=== PATIENT | female | born 1970 | race Caucasian/White ===

== ENCOUNTER 2016-11-21 16:17 | Emergency (ER) | payer SELFPAY ==
[~2016-11-21] VITALS: Ht 160 cm; Wt 93.0 kg
[~2016-11-21 16:17] MED LIST: DICL75 PO; PRIN10TA PO
[2016-11-21 16:20] VITALS: BP 184/95; PULSE 68; RESP 20; TEMP 97.8; O2SAT 95
--- NOTE | 2016-11-21 16:26 | PD ---
Physical Exam Date Seen by Provider: November 21, 2016 Time Seen by Provider: 16:23 Narrative Pt is a 46 year old female presenting to the ED for evaluation of tunnel vision which started yesterday, hx of the same. Left sided facial and arm numbness. No weakness in extremities. She states she has a right sided headache, this headache is different from previous headaches she has had. Vomiting and photophobia. VSS, alert. Awaiting bed placement. Data Data Last Documented VS Vital Signs Date Time Temp Pulse Resp B/P Pulse Ox O2 Delivery O2 Flow Rate FiO2 11/21/16 16:20 97.8 68 20 184/95 95 Room Air [facility] Supervised Visit with RUSS: Ellen Fuentes November 21, 2016 16:26
--- NOTE | 2016-11-21 18:26 | PD ---
HPI Chief Complaint: Numbness/Tingling Time Seen by Provider: 18:26 Travel History International Travel<30 days: No Contact w/Intl Traveler<30days: No Traveled to known affect area: No History of Present Illness HPI 46-year-old female presents to the ED for evaluation of two-year history of right-sided headache. Patient states that the headaches always begin the same way-- with "kaleidoscope" vision followed by numbness of the left sided upper and lower extremities. She states that shortly after she has sharp 10/10 pain in the right side of the head. She states that the headaches are accompanied by nausea. No exacerbating or alleviating factors reported. She states that she usually goes to sleep to relieve the headache. She states that when she wakes the pain is diminished but not completely resolved. She endorses two of these headaches in the last 24 hours, endorses 9 out of 10 headache on presentation. PFSH Past Medical History Cardiovascular Problems: Yes Diminished Hearing: No Gastrointestinal Disorders: Yes (GASTRITIS) Genitourinary: Yes Hiatal Hernia: Yes Hypertension: Yes (UNTREATED) Kidney Stones: Yes Musculoskeletal: Yes (BILATERAL SCIATICIA) Neurologic: Yes Immunizations Current: Yes Migraines: Yes ?: Unknown Menopausal: No : 1 Para: 1 Past Surgical History Genitourinary Surgery: Yes (STENT IN URETER KIDNEY,KIDNEY STONES REMOVED) Gynecologic Surgery: Yes (OVARIAN CYST) Other Surgery: Yes ( ) Social History Alcohol Use: No (quit x 2 years) Tobacco Use: No (quit x 2 years) Substance Use: Yes (marijuana occasionally) Allergies-Medications (Allergen,Severity, Reaction): Coded Allergies: No Known Allergies (Verified , 11/21/16) Reported Meds & Prescriptions Reported Meds & Active Scripts Active Ultram (Tramadol HCl) 50 Mg Tab 50 Mg PO Q8H PRN Fioricet (Wiklmhdgdo-Obttxhmtyqtbz-Vpuctqye) 50-300-40 Mg Cap 1 Cap PO Q4H PRN Reported Ibuprofen 800 Mg Tab 800 Mg PO ONCE Review of Systems Except as stated in HPI: all other systems reviewed are Neg General / Constitutional: No: Fever, Chills Eyes: Positive: Blurred Vision HENT: Positive: Headaches Cardiovascular: No: Chest Pain or Discomfort, Palpitations, Diaphoresis, Syncope, Edema Respiratory: No: Cough, Shortness of Breath Gastrointestinal: Positive: Nausea, No: Vomiting, Abdominal Pain Genitourinary: No: Urgency, Frequency, Dysuria Musculoskeletal: No: Myalgias, Arthralgias, Weakness Neurologic: Positive: Headache, No: Weakness, Syncope, Focal Abnormalities, Slurred Speech Physical Exam Narrative GENERAL: Well-nourished, well-developed nontoxic appearing white female in no acute distress. SKIN: Focused skin assessment warm/dry. HEAD: Normocephalic. Atraumatic. EYES: No scleral icterus. No injection or drainage. PERRLA. EOMI. NECK: Supple, trachea midline. No JVD or lymphadenopathy. CARDIOVASCULAR: Regular rate and rhythm without murmurs, gallops, or rubs. Plus DP and radial pulses bilaterally. RESPIRATORY: Breath sounds clear and equal bilaterally. No accessory muscle use. GASTROINTESTINAL: Abdomen soft, non-tender, nondistended. Active bowel sounds. MUSCULOSKELETAL: No cyanosis, or edema. Patient ambulates with a normal gait. She moves extremities spontaneously. NEUROLOGICAL: Awake and alert. Cranial nerves II through XII intact. Motor and sensory grossly within normal limits. Five out of 5 muscle strength in all muscle groups. Normal speech. No pronator drift. No difficulties with finger to nose testing. BACK: Nontender without obvious deformity. No CVA tenderness. Data Data Last Documented VS Vital Signs Date Time Temp Pulse Resp B/P Pulse Ox O2 Delivery O2 Flow Rate FiO2 11/21/16 21:03 71 16 125/64 96 Room Air 11/21/16 16:20 97.8 Orders Complete Blood Count With Diff (11/21/16 18:37) Comprehensive Metabolic Panel (11/21/16 18:37) Ct Brain W/O Iv Contrast(Rout) (11/21/16 18:37) Ecg Monitoring (11/21/16 18:37) Iv Access Insert/Monitor (11/21/16 18:37) Oximetry (11/21/16 18:37) Sodium Chloride 0.9% Flush (Ns Flush) (11/21/16 18:45) Ketorolac Inj (Toradol Inj) (11/21/16 18:45) Prochlorperazine Inj (Compazine Inj) (11/21/16 18:45) Diphenhydramine Inj (Benadryl Inj) (11/21/16 18:45) Sodium Chlor 0.9% 1000 Ml Inj (Ns 1000 M (11/21/16 18:37) Urinalysis - C+S If Indicated (11/21/16 18:37) Ed Urine Pregnancytest Poc (11/21/16 18:37) Mandatory Outpatient Referral (11/21/16 21:46) Labs Laboratory Tests Test 11/21/16 11/21/16 18:20 20:30 White Blood Count 18.5 TH/MM3 Red Blood Count 4.97 MIL/MM3 Hemoglobin 14.9 GM/DL Hematocrit 44.1 % Mean Corpuscular Volume 88.7 FL Mean Corpuscular Hemoglobin 30.0 PG Mean Corpuscular Hemoglobin 33.8 % Concent Red Cell Distribution Width 13.1 % Platelet Count 420 TH/MM3 Mean Platelet Volume 8.6 FL Neutrophils (%) (Auto) 82.7 % Lymphocytes (%) (Auto) 14.2 % Monocytes (%) (Auto) 2.4 % Eosinophils (%) (Auto) 0.2 % Basophils (%) (Auto) 0.5 % Neutrophils # (Auto) 15.3 TH/MM3 Lymphocytes # (Auto) 2.6 TH/MM3 Monocytes # (Auto) 0.4 TH/MM3 Eosinophils # (Auto) 0.0 TH/MM3 Basophils # (Auto) 0.1 TH/MM3 CBC Comment DIFF FINAL Differential Comment Sodium Level 139 MEQ/L Potassium Level 3.9 MEQ/L Chloride Level 102 MEQ/L Carbon Dioxide Level 24.7 MEQ/L Anion Gap 12 MEQ/L Blood Urea Nitrogen 10 MG/DL Creatinine 0.83 MG/DL Estimat Glomerular Filtration 75 ML/MIN Rate Random Glucose 112 MG/DL Calcium Level 9.3 MG/DL Total Bilirubin 0.9 MG/DL Aspartate Amino Transf 19 U/L (AST/SGOT) Alanine Aminotransferase 28 U/L (ALT/SGPT) Alkaline Phosphatase 93 U/L Total Protein 8.5 GM/DL Albumin 4.2 GM/DL Urine Color YELLOW Urine Turbidity CLEAR Urine pH 7.0 Urine Specific [place] 1.011 Urine Protein NEG mg/dL Urine Glucose (UA) NEG mg/dL Urine Ketones NEG mg/dL Urine Occult Blood NEG Urine Nitrite NEG Urine Bilirubin NEG Urine Urobilinogen LESS THAN 2.0 MG/DL Urine Leukocyte Esterase NEG Urine RBC LESS THAN 1 /hpf Urine WBC 1 /hpf Urine Squamous Epithelial 2 /hpf Cells Urine Bacteria RARE /hpf Microscopic Urinalysis Comment CULT NOT INDICATED MDM Medical Decision Making Medical Screen Exam Complete: Yes Emergency Medical Condition: Yes Differential Diagnosis Cephalgia versus migraine headache versus brain mass versus less likely ICH versus less likely embolic stroke versus other Narrative Course 46-year-old female presents to the ED for evaluation of two-year history of right-sided headache. Patient states that the headaches always begin the same way-- with "kaleidoscope" vision followed by numbness of the left sided upper and lower extremities. She states that shortly after she has sharp 10/10 pain in the right side of the head. She states that the headaches are accompanied by nausea. No exacerbating or alleviating factors reported. She states that she usually goes to sleep to relieve the headache. She states that when she wakes the pain is diminished but not completely resolved. She endorses two of these headaches in the last 24 hours, endorses 9 out of 10 headache on presentation. Vitals reviewed. Physical exam reveals a nontoxic-appearing white female in no acute distress. No focal neuro deficits. IV was established. Patient was placed on continuous monitoring. She was administered IV Benadryl, Compazine, Toradol, 1 L normal saline. CBC: Leukocytosis of 18.5 CMP: Unremarkable UA: no culture indicated CT of the head: Normal per radiology read On recheck the patient reports improvement of her symptoms. I suspect this is complex migraine. Suspect the elevated white count is stress reaction secondary to 2 headaches within 24 hours. I feel the patient is safe for discharge with abortive medications and outpatient follow-up. I discussed this plan with Dr. Pryor who is agreeable. I discussed the results of the workup with the patient. Patient was provided prescriptions for Fioricet and Ultram. Mandatory outpatient consult was placed with neurology. She is instructed to take the medications as prescribed, follow up as discussed. She indicated understanding of instructions and is agreeable to the care plan. The patient is stable and discharged home. Diagnosis Primary Impression: Headache Qualified Code: G44.89 - Other headache syndrome Referrals: Andres Campos PhD MD Patient Instructions: General Instructions, Migraine Headache (ED) Additional Instructions: Rest, hydrate. Avoid known stressors. Takes Fioricet at onset of headache. This may be coadministered with Ultram. A mandatory outpatient follow-up has been wasting your behalf. Either the hospital or neurologist office will contact you regarding follow up. Follow up with Dr. Campos as discussed. Return to the ED for any urgent or emergent medical condition. Med/Other Pt SpecificInfo: Prescription(s) given Scripts Tramadol (Ultram)50 Mg Tab50 Mg PO Q8H PRN (PAIN) #10 TAB Ref 0 Prov:Andrea Pryor MD 11/21/16 Edeushpbyc-Zyxikwstfplfs-Llccjjwb (Fioricet)50-300-40 Mg Cap1 Cap PO Q4H PRN ( HEADACHE) #20 CAP Ref 0 Prov:Andrea Pryor MD 11/21/16 Disposition: 01 DISCHARGE HOME Condition: Stable Lisa Barriga November 21, 2016 18:26
[2016-11-21] MEDS ORDERED: SODIUM CHLOR 0.9% 1000 ML INJ 1,000 ML IV ONE (18:37)
[2016-11-21] MEDS ORDERED: SODIUM CHLORIDE 0.9% FLUSH 10 ML FLUSH IVF PRN (18:45)
[2016-11-21] MEDS ORDERED: PROCHLORPERAZINE INJ 10 MG/2 ML VIAL IVP ONE (18:45)
[2016-11-21] MEDS ORDERED: KETOROLAC TROMETHAMINE 30 MG/ML (IVP) VIAL IVP ONE (18:45)
[2016-11-21] MEDS ORDERED: diphenhydrAMINE HCL 50 MG/ML VIAL IVP ONE (18:45)
[2016-11-21 18:59] LABS: AUTOMATED NEUTROPHIL # 15.3 TH/MM3 (1.8-7.7); BASOPHIL # 0.1 TH/MM3 (0-0.2); BASOPHIL % 0.5 % (0.0-2.0); EOSINOPHIL % 0.2 % (0.0-4.0); HEMATOCRIT 44.1 % (35.0-46.0); HEMO FLAGS DIFF FINAL; LYMPH % 14.2 % (9.0-44.0); LYMPHOCYTE # 2.6 TH/MM3 (1.0-4.8); MEAN CELL VOLUME 88.7 FL (80.0-100.0); MEAN CORPUSCULAR HGB CONC 33.8 % (32.0-36.0); MONO % 2.4 % (0.0-8.0); NEUT % 82.7 % (16.0-70.0); PLATELET COUNT 420 TH/MM3 (150-450); RED BLOOD COUNT 4.97 MIL/MM3 (4.00-5.30); RED CELL DISTRIBUTION WIDTH 13.1 % (11.6-17.2); WHITE BLOOD COUNT 18.5 TH/MM3 (4.0-11.0)
[2016-11-21 19:00] VITALS: BP 147/71; PULSE 71; PULSE 74; RESP 17; RESP 18; O2SAT 97
[2016-11-21] MEDS ORDERED: IBUP800T23 PO (19:01)
[2016-11-21 19:12] VITALS: O2SAT 99
[2016-11-21 19:16] LABS: ANION GAP 12 MEQ/L (5-15); AST (GOT) 19 U/L (15-37); BICARBONATE 24.7 MEQ/L (21.0-32.0); BLOOD UREA NITROGEN 10 MG/DL (7-18); CHLORIDE 102 MEQ/L (98-107); GLOMERULAR FILTRATION RATE 75 ML/MIN (>89); POTASSIUM 3.9 MEQ/L (3.5-5.1); SODIUM (NA) 139 MEQ/L (136-145)
[2016-11-21 19:19] LABS: ALKALINE PHOSPHATASE 93 U/L (45-117); ALT (GPT) 28 U/L (10-53); TOTAL BILIRUBIN ADULT 0.9 MG/DL (0.2-1.0)
--- NOTE | 2016-11-21 19:42 | RADRPT ---
EXAM DATE/TIME: 11/21/2016 19:19 [place] COMPARISON: No previous studies available for comparison. INDICATIONS : Left sided numbness and right sided cephalgia with nausea and vomiting. Hard to see. RADIATION DOSE: 43.69 CTDIvol (mGy) MEDICAL HISTORY : Hypertension. Cardiovascular disease SURGICAL HISTORY : None. ENCOUNTER: Initial ACUITY: 1 day PAIN SCALE: 8/10 LOCATION: cranial TECHNIQUE: Multiple contiguous axial images were obtained of the head. Using automated exposure control and adj ustment of the mA and/or kV according to patient size, radiation dose was kept as low as reasonably a chievable to obtain optimal diagnostic quality images. FINDINGS: CEREBRUM: The ventricles are normal for age. No evidence of midline shift, mass lesion, hemorrhage or acute in farction. No extra-axial fluid collections are seen. POSTERIOR FOSSA: The cerebellum and brainstem are intact. The 4th ventricle is midline. The cerebellopontine angle i s unremarkable. EXTRACRANIAL: The visualized portion of the orbits is intact. SKULL: The calvaria is intact. No evidence of skull fracture. CONCLUSION: Normal examination. Khari Suarez MD on November 21, 2016 at 19:39 Board Certified Radiologist. This report was verified electronically.
[2016-11-21 21:03] VITALS: BP 125/64; PULSE 71; RESP 16; O2SAT 96
[2016-11-21 21:06] LABS: BACTERIA, URINE RARE /hpf; BLOOD, URINE NEG (NEG); COMMENT (UR) CULT NOT INDICATED; CULTURE IF INDICATED CULT NOT INDICATED; GLUCOSE,URINE NEG (NEG); KETONE, URINE NEG (NEG); NITRITE,URINE NEG (NEG); SQUAMOUS EPITHELIAL CELL URINE 2 /hpf (0-5); URINE COLOR YELLOW (YELLW/STRAW)
[2016-11-21] MEDS ORDERED: ULTR50TA5 PO (21:44)
[2016-11-21] MEDS ORDERED: BUTA1CAP PO (21:44)
== END 2016-11-21 21:50 | disposition home or self-care (01) ==
LOC: NEPC 16:17
DX: R51 Headache (principal); I10 Essential (primary) hypertension; F12.90 Cannabis use, unspecified, uncomplicated
CPT/HCPCS: 70450; 80053; 81001; 84703; 85025; 96361; 96374; 96375; 99284; J0780; J1200; J1885; J7030

== ENCOUNTER 2017-03-26 10:51 | Emergency (ER) | payer SELFPAY ==
[~2017-03-26] VITALS: Ht 160 cm; Wt 90.0 kg
[~2017-03-26 10:51] MED LIST changes: +BUTA1CAP PO; -DICL75 PO; +IBUP800T23 PO; -PRIN10TA PO; +ULTR50TA5 PO
[2017-03-26 10:53] VITALS: BP 187/100; PULSE 105; RESP 20; TEMP 98.4; O2SAT 96
[2017-03-26 11:01] VITALS: BP 173/98; PULSE 86; RESP 16
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
== END 2017-03-26 11:29 | disposition left against medical advice (07) ==
LOC: NETRI 10:51
DX: M25.531 Pain in right wrist (principal)
CPT/HCPCS: 99281

== ENCOUNTER 2017-04-25 09:44 | Emergency (ER) | payer SELFPAY ==
[~2017-04-25] VITALS: Ht 160 cm; Wt 100.0 kg
[2017-04-25 09:50] VITALS: BP 201/108; PULSE 92; RESP 16; TEMP 98.2; O2SAT 99
[2017-04-25 11:21] LABS: AUTOMATED NEUTROPHIL # 2.1 TH/MM3 (1.8-7.7); EOSINOPHIL # 0.2 TH/MM3 (0-0.4); EOSINOPHIL % 3.3 % (0.0-4.0); HEMATOCRIT 39.6 % (35.0-46.0); HEMO FLAGS DIFF FINAL; LYMPH % 45.2 % (9.0-44.0); LYMPHOCYTE # 2.1 TH/MM3 (1.0-4.8); MEAN CELL VOLUME 98.7 FL (80.0-100.0); MEAN CORPUSCULAR HEMOGLOBIN 33.5 PG (27.0-34.0); MEAN CORPUSCULAR HGB CONC 33.9 % (32.0-36.0); NEUT % 44.5 % (16.0-70.0); PLATELET COUNT 222 TH/MM3 (150-450); RED BLOOD COUNT 4.01 MIL/MM3 (4.00-5.30); RED CELL DISTRIBUTION WIDTH 15.2 % (11.6-17.2); WHITE BLOOD COUNT 4.7 TH/MM3 (4.0-11.0)
[2017-04-25 11:41] LABS: ALT (GPT) 137 U/L (10-53); ANION GAP 7 MEQ/L (5-15); AST (GOT) 197 U/L (15-37); BICARBONATE 28.5 MEQ/L (21.0-32.0); BLOOD UREA NITROGEN 8 MG/DL (7-18); CHLORIDE 107 MEQ/L (98-107); GLOMERULAR FILTRATION RATE 104 ML/MIN (>89); POTASSIUM 3.4 MEQ/L (3.5-5.1); SODIUM (NA) 142 MEQ/L (136-145)
[2017-04-25 11:43] LABS: ALKALINE PHOSPHATASE 109 U/L (45-117); TOTAL BILIRUBIN ADULT 0.5 MG/DL (0.2-1.0)
[2017-04-25 11:44] LABS: ALCOHOL 258 MG/DL (0-5)
[2017-04-25 13:13] VITALS: BP 145/86; PULSE 76; RESP 19; TEMP 98; O2SAT 95
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
[2017-04-25 14:00] VITALS: BP 180/100; PULSE 69; RESP 18; TEMP 98.7; O2SAT 96
--- NOTE | 2017-04-25 17:41 | PD ---
Physical Exam Time Seen by Provider: 17:37 SAGE Wu has evaluated the patient and cleared the patient for discharge. Data Data Last Documented VS Vital Signs Date Time Temp Pulse Resp B/P (MAP) Pulse Ox O2 Delivery O2 Flow Rate FiO2 04/25/17 14:00 98.7 69 18 180/100 (126) 96 Room Air Orders Orders Complete Blood Count With Diff (04/25/17 10:18) Comprehensive Metabolic Panel (04/25/17 10:18) Psych Screen (04/25/17 10:18) Drug Screen, Random Urine (04/25/17 10:18) Alcohol (Ethanol) (04/25/17 10:18) Diet Regular Basic (04/25/17 Dinner) Labs Laboratory Tests Test 04/25/17 10:37 White Blood Count 4.7 TH/MM3 Red Blood Count 4.01 MIL/MM3 Hemoglobin 13.4 GM/DL Hematocrit 39.6 % Mean Corpuscular Volume 98.7 FL Mean Corpuscular Hemoglobin 33.5 PG Mean Corpuscular Hemoglobin Concent 33.9 % Red Cell Distribution Width 15.2 % Platelet Count 222 TH/MM3 Mean Platelet Volume 8.1 FL Neutrophils (%) (Auto) 44.5 % Lymphocytes (%) (Auto) 45.2 % Monocytes (%) (Auto) 6.0 % Eosinophils (%) (Auto) 3.3 % Basophils (%) (Auto) 1.0 % Neutrophils # (Auto) 2.1 TH/MM3 Lymphocytes # (Auto) 2.1 TH/MM3 Monocytes # (Auto) 0.3 TH/MM3 Eosinophils # (Auto) 0.2 TH/MM3 Basophils # (Auto) 0.0 TH/MM3 CBC Comment DIFF FINAL Differential Comment Blood Urea Nitrogen 8 MG/DL Creatinine 0.62 MG/DL Random Glucose 108 MG/DL Total Protein 7.6 GM/DL Albumin 3.6 GM/DL Calcium Level 8.5 MG/DL Alkaline Phosphatase 109 U/L Aspartate Amino Transf (AST/SGOT) 197 U/L Alanine Aminotransferase (ALT/SGPT) 137 U/L Total Bilirubin 0.5 MG/DL Sodium Level 142 MEQ/L Potassium Level 3.4 MEQ/L Chloride Level 107 MEQ/L Carbon Dioxide Level 28.5 MEQ/L Anion Gap 7 MEQ/L Estimat Glomerular Filtration Rate 104 ML/MIN Urine Opiates Screen NEG Urine Barbiturates Screen NEG Urine Amphetamines Screen NEG Urine Benzodiazepines Screen NEG Urine Cocaine Screen NEG Urine Cannabinoids Screen POS Ethyl Alcohol Level 258 MG/DL MDM Supervised Visit with RUSS: No Narrative SAGE Ojeda has evaluated the patient and cleared the patient for discharge. Patient is clinically sober. Patient contracts safety. Denies suicidal or homicidal ideations. Patient will be provided community resource packet to / NEELA for follow-up. Has friends and family for support. Patient is medically cleared for discharge.e Diagnosis Primary Impression: Alcohol-induced mood disorder Referrals: NEELA (Out patient) [facility] Primary Care Physician Psychiatrist [facility] Patient Instructions: Alcohol Intoxication (ED), General Instructions, Mood Disorders (ED), Suicide Prevention for Adults (ED) Additional Instruction: Contract safety to your self and others Stop drinking alcohol Follow-up with psychiatry Follow-up with primary care provider Follow-up with Sunny Trent Return to the emergency department immediately with worsening of symptoms Med/Other Pt SpecificInfo: No Change to Meds, No Meds Exist/No RX given Disposition: 01 DISCHARGE HOME Condition: Stable Blanca Jauregui Apr 25, 2017 17:41
--- NOTE | 2017-04-25 17:49 | PD ---
History of Present Illness Chief Complaint: Psychiatric Symptoms Time Seen by Provider: 16:45 Travel History International Travel<30 Days: No Contact w/Intl Traveler<30days: No Known affected area: No Legal Status Legal Status: Voluntary History of Present Illness: History of Present Illness HPI 47 year old female who presents to the emergency department on a voluntary basis requesting a psychiatric evaluation with complaint of increased depression and suicidal thoughts for the past week. This coincides with her relapse after an 8 month period of sobriety. She presents to the emergency department with a blood alcohol level of 238. She reports that when she got home from work yesterday her boyfriend was intoxicated and began arguing with her. She began drinking last night. This morning she requested that her sister bringing her to the emergency department. Electronic medical record is reviewed. Her last contact with psychiatry was in 2009 when she was seen in the emergency department for alcohol-induced mood disorder. Patient is seen. She she is dressed in hospital describes. Appears older than stated age. She is clinically sober with no tremors, steady gait, normal speech pattern. There is no psychosis no sanya and no suicidal or homicidal ideation. She denies significant symptoms of depression at this time and acknowledges that her recent relapse and drinking all call are causing some of her increased sadness. She acknowledges frustration with her boyfriend since he was sober as well for 8 months and has also had a relapse. She wishes to once again began her recovery and has several options as she sees it. She is considering returning to stay with her sister so that she can continue to work on her recovery. I have suggested AA as well as a sober living house but at this time she wishes to return home or to be with her sister. PFSH Past Medical History Medical History: Denies Significant Hx Cardiovascular Problems: Yes Diminished Hearing: No Gastrointestinal Disorders: Yes (GASTRITIS) Genitourinary: Yes Hiatal Hernia: Yes Hypertension: Yes (UNTREATED) Kidney Stones: Yes Musculoskeletal: Yes (BILATERAL SCIATICIA) Neurologic: Yes Immunizations Current: Yes Migraines: Yes ?: Not Menopausal: No : 1 Para: 1 Past Surgical History Genitourinary Surgery: Yes (STENT IN URETER KIDNEY,KIDNEY STONES REMOVED) Gynecologic Surgery: Yes (OVARIAN CYST) Other Surgery: Yes ( ) Psychiatric History Psychiatric History Hx Psychiatric Treatment: DEPRESSION 24 YEARS AGO TREATED WITH PROZAC. HX. Curently not in tx. One previous suicde attempt 24years ago. History of Inpatient Treatment: Yes Guns or firearms in home: No Social History Single female who has completed 10th grade. 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 She lives with her boyfriend of 1-1/2 years. Hx Alcohol Use: Yes (began drinking again today) Hx Tobacco Use: No (quit x 2 years) Hx Substance Use: Yes Substance Use Type: Alcohol, Marijuana Other Substances Used: PT. HAS BEEN SOBER FOR 8 MONTHS DRANK YESTERDAY Hx of Substance Use Treatment: No Family Psychiatric History Mother and grandmother with history of depression Allergies-Medications (Allergen,Severity, Reaction): Coded Allergies: No Known Allergies (Verified , 11/21/16) Reported Meds & Prescriptions Reported Meds & Active Scripts Active Fioricet (Armxoozqva-Vmyiguoasovef-Xgfqeong) 50-300-40 Mg Cap 1 Cap PO Q4H PRN Review of Systems Ears, nose, mouth, throat: COMPLAINS OF: Toothache Musculoskeletal: COMPLAINS OF: Joint pain, Muscle aches Mental Status Examination Appearance: Appropriate Consciousness: Alert Orientation: x4 Motor Activity: Normal gait Speech: Unremarkable Language: Adequate Fund of Knowledge: Adequate Attention and Concentration: Adequate Memory: Unremarkable Mood: Appropriate Affect: Appropriate Thought Process & Associations: Intact, Logical, Goal directed Thought Content: Appropriate Hallucination Type: None Delusion Type: None Suicidal Ideation: No Suicidal Plan: No Suicidal Intention: No Homicidal Ideation: No Homicidal Plan: No Homicidal Intention: No Insight: Adequate Judgment: Adequate MDM Medical Decision Making Medical Record Reviewed: Yes Assessment/Plan 47 year old female who presents to the emergency department on a voluntary basis requesting a psychiatric evaluation with complaint of increased depression and suicidal thoughts for the past week. This coincides with her relapse after an 8 month period of sobriety. Patient is monitored and secure environment until she is clinically sober. She denies suicidal or homicidal ideation, she is not psychotic, there is no indication of sanya, patient is future oriented. She talks about her hoda and her believe in God that has helped her to maintain sobriety and relies upon that. I have encouraged her to join AA . At this time she does not meet criteria for inpatient treatment. She will abuse discharge home. Is advised to return to the emergency department if any changes in current condition. Psychoeducation and supportive interventions. Psychiatrically clear for discharge from emergency department. Orders Orders Complete Blood Count With Diff (04/25/17 10:18) Comprehensive Metabolic Panel (04/25/17 10:18) Psych Screen (04/25/17 10:18) Drug Screen, Random Urine (04/25/17 10:18) Alcohol (Ethanol) (04/25/17 10:18) Diet Regular Basic (04/25/17 Dinner) Results Vital Signs Date Time Temp Pulse Resp B/P (MAP) Pulse Ox O2 Delivery O2 Flow Rate FiO2 04/25/17 14:00 98.7 69 18 180/100 (126) 96 Room Air 04/25/17 13:58 04/25/17 13:13 98.0 76 19 145/86 (105) 95 Room Air 04/25/17 09:50 98.2 92 16 201/108 (139) 99 Laboratory Tests Test 04/25/17 10:37 White Blood Count 4.7 Red Blood Count 4.01 Hemoglobin 13.4 Hematocrit 39.6 Mean Corpuscular Volume 98.7 Mean Corpuscular Hemoglobin 33.5 Mean Corpuscular Hemoglobin Concent 33.9 Red Cell Distribution Width 15.2 Platelet Count 222 Mean Platelet Volume 8.1 Neutrophils (%) (Auto) 44.5 Lymphocytes (%) (Auto) 45.2 Monocytes (%) (Auto) 6.0 Eosinophils (%) (Auto) 3.3 Basophils (%) (Auto) 1.0 Neutrophils # (Auto) 2.1 Lymphocytes # (Auto) 2.1 Monocytes # (Auto) 0.3 Eosinophils # (Auto) 0.2 Basophils # (Auto) 0.0 CBC Comment DIFF FINAL Differential Comment Blood Urea Nitrogen 8 Creatinine 0.62 Random Glucose 108 Total Protein 7.6 Albumin 3.6 Calcium Level 8.5 Alkaline Phosphatase 109 Aspartate Amino Transf (AST/SGOT) 197 Alanine Aminotransferase (ALT/SGPT) 137 Total Bilirubin 0.5 Sodium Level 142 Potassium Level 3.4 Chloride Level 107 Carbon Dioxide Level 28.5 Anion Gap 7 Estimat Glomerular Filtration Rate 104 Urine Opiates Screen NEG Urine Barbiturates Screen NEG Urine Amphetamines Screen NEG Urine Benzodiazepines Screen NEG Urine Cocaine Screen NEG Urine Cannabinoids Screen POS Ethyl Alcohol Level 258 Diagnosis Primary Impression: Alcohol dependence with acute alcoholic intoxication Additional Impression: Alcohol-induced mood disorder Psychiatrically Cleared: Yes Additional Instructions: AA Med/ Other Pt Specific Info: No Meds Exist/No RX given Disposition: 01 DISCHARGE HOME Condition: Stable Problem Qualifiers Primary Impression: Alcohol dependence with acute alcoholic intoxication Qualified Codes: F10.220 - Alcohol dependence with intoxication, uncomplicated Jesi Gupta [facility] Apr 25, 2017 17:49
== END 2017-04-25 18:49 | disposition home or self-care (01) ==
LOC: NEPD 09:44 → NEPJ 18:49
DX: F10.220 Alcohol dependence with intoxication, uncomplicated (principal); F39 Unspecified mood [affective] disorder; Z87.891 Personal history of nicotine dependence
CPT/HCPCS: 80053; 80307; 85025; 99284